=== PATIENT | female | born 1995 | race American Indian/Alaskan Native ===

== ENCOUNTER 2016-11-13 02:05 | Emergency (ER) | payer SELFPAY ==
[2016-11-13 02:25] VITALS: BP 121/78
[2016-11-13] MEDS ORDERED: TYLENOL ONE (02:27)
[2016-11-13] MEDS ORDERED: TYLENOL PO ONE (03:03)
--- NOTE | 2016-11-13 04:25 | Emergency Department Report ---
ED Lower Extremity HPI - General Chief Complaint: Extremity Injury, Lower Stated Complaint: RT ANKLE PAIN Time Seen by Provider: 11/13/16 03:51 Source: patient Mode of arrival: Ambulatory Limitations: No Limitations - History of Present Illness Complaint: ankle injury Onset/Timin -: Sudden, days(s) Injury: Ankle: Right Type of Injury: other (no fall injury or trauma) Place: home Severity: moderate Severity scale (0 -10): 3 Improves With: nothing Worsens With: movement, palpation Context: other (none) - Related Data Previous Rx's Medication Instructions Recorded Last Taken Type Ferrous Sulfate [Feosol 325 MG tab] 325 mg PO BID #90 tablet 02/07/13 Unknown Rx Cyclobenzaprine [Flexeril] 10 mg PO TID PRN #30 tablet 11/13/16 Unknown Rx Naproxen [Naprosyn TAB] 500 mg PO BID PRN #60 tablet 11/13/16 Unknown Rx Allergies Allergy/AdvReac Type Severity Reaction Status Date / Time No Known Allergies Allergy Verified 02/05/13 00:20 ED Review of Systems ROS: Stated complaint: RT ANKLE PAIN Other details as noted in HPI Constitutional: denies: chills, fever Eyes: denies: eye pain, eye discharge, vision change ENT: denies: ear pain, throat pain Respiratory: denies: cough, shortness of breath, wheezing Cardiovascular: denies: chest pain, palpitations Endocrine: no symptoms reported Gastrointestinal: denies: abdominal pain, nausea, diarrhea Genitourinary: denies: urgency, dysuria, discharge Musculoskeletal: denies: back pain, arthralgia Skin: denies: rash, lesions Neurological: denies: headache, weakness, paresthesias Psychiatric: denies: anxiety, depression Hematological/Lymphatic: denies: easy bleeding, easy bruising ED Past Medical Hx - Past Medical History Previous Medical History?: No Hx Hypertension: No Hx Congestive Heart Failure: No Hx Diabetes: No Hx Deep Vein Thrombosis: No Hx Renal Disease: No Hx Sickle Cell Disease: No Hx Seizures: No Hx Asthma: No Hx COPD: No Hx HIV: No - Surgical History Past Surgical History?: No - Social History Smoking Status: Never Smoker Substance Use Type: None - Medications Home Medications: Home Medications Medication Instructions Recorded Confirmed Last Taken Type Ferrous Sulfate [Feosol 325 MG tab] 325 mg PO BID #90 tablet 02/07/13 Unknown Rx Cyclobenzaprine [Flexeril] 10 mg PO TID PRN #30 tablet 11/13/16 Unknown Rx Naproxen [Naprosyn TAB] 500 mg PO BID PRN #60 tablet 11/13/16 Unknown Rx ED Physical Exam - General Limitations: No Limitations General appearance: alert, in no apparent distress - Head Head exam: Present: atraumatic, normocephalic - Eye Eye exam: Present: normal appearance - ENT ENT exam: Present: mucous membranes moist - Neck Neck exam: Present: normal inspection - Respiratory Respiratory exam: Present: normal lung sounds bilaterally. Absent: respiratory distress - Cardiovascular Cardiovascular Exam: Present: regular rate, normal rhythm. Absent: systolic murmur, diastolic murmur, rubs, gallop - GI/Abdominal GI/Abdominal exam: Present: soft, normal bowel sounds - Rectal Rectal exam: Present: deferred - Expanded Lower Extremity Exam Right Upper Leg exam: Present: normal inspection Knee exam: Present: normal inspection Lower Leg exam: Present: normal inspection Ankle exam: Present: full ROM, swelling, ecchymosis. Absent: tenderness, abrasion, laceration, deformity, crepidus, dislocation, erythema, anterior draw sign Neuro vascular tendon exam: Present: no vascular compromise. Absent: pulse deficit, abnormal cap refill, motor deficit, sensory deficit, tendon deficit, extremity cold to touch, pallor, abnormal 2-point discrimination, decreased fine /light touch, foot drop, peroneal nerve deficit, significant pain with passive ROM of distal joint Gait: Positive: observed and limited by pain - Back Exam Back exam: Present: normal inspection - Neurological Exam Neurological exam: Present: alert, oriented X3 - Psychiatric Psychiatric exam: Present: normal affect, normal mood - Skin Skin exam: Present: warm, dry, intact, normal color. Absent: rash ED Course Vital Signs 11/13/16 02:21 Temperature 98.6 F Pulse Rate 80 Respiratory 18 Rate Blood Pressure 121/78 [Right] O2 Sat by Pulse 99 Oximetry ED Lower Extremity MDM - Radiology Data Radiology results: image reviewed no fracture - Medical Decision Making pt is a 21 y/o aaf with nmh who presents for left ankle pain and swelling x 1 day pt advises pain initiated after lifting heavy boxes at work, pain is 4/10 aching to lateral ankle there is no fever no erythema no edema no ecchymosis , pain is reproducilbel to external rotation , pt is ambulatory with minimal discomfort, xray negative for fracture. plan: johnathan , rice, nsaids , muscle relaxant , ankle exercises pt verbalized agreement and understanding with discharge plan. Critical care attestation.: If time is entered above; I have spent that time in minutes in the direct care of this critically ill patient, excluding procedure time. ED Disposition Clinical Impression: Right ankle strain Disposition: DC-01 TO HOME OR SELFCARE Is pt being admited?: No Does the pt Need Aspirin: No Condition: Good Instructions: Ankle Exercises (GEN) Prescriptions: Cyclobenzaprine [Flexeril] 10 mg PO TID PRN #30 tablet PRN Reason: Muscle Spasm Naproxen [Naprosyn TAB] 500 mg PO BID PRN #60 tablet PRN Reason: Pain Referrals: PRIMARY CARE, [Primary Care Provider] - 3-5 Days Time of Disposition: 04:31
--- NOTE | 2016-11-13 07:19 | XRay Report ---
RIGHT ANKLE, 3 views: History: Right ankle pain. Findings: Mild soft tissue swelling is identified. No acute osseous abnormality or joint pathology is identified. The fifth metatarsal base is intact. Impression: Soft tissue swelling. No acute osseous injury.
== END 2016-11-13 04:56 | disposition home or self-care (01) ==
LOC: ED 02:05
DX: S96.911A Strain of unspecified muscle and tendon at ankle and foot level, right foot, initial encounter (principal); X58.XXXA Exposure to other specified factors, initial encounter; Y93.89 Activity, other specified; Y92.89 Other specified places as the place of occurrence of the external cause; Y99.8 Other external cause status
CPT/HCPCS: 99283

== ENCOUNTER 2017-11-27 00:56 | Emergency (ER) | payer SELFPAY ==
[2017-11-27 02:20] LABS: Basophils % (Auto) 0.4 % (0.0-1.8); Eosinophils # (Auto) 0.1 K/mm3 (0.0-0.4); Eosinophils % (Auto) 1.1 % (0.0-4.3); Hematocrit 30.4 % (30.3-42.9); Lymphocytes # (Auto) 1.7 K/mm3 (1.2-5.4); Lymphocytes % (Auto) 21.2 % (13.4-35.0); Mean Corpuscular HGB Conc 33 % (30-34); Mean Corpuscular Hemoglobin 27 pg (28-32); Mean Corpuscular Volume 81 fl (79-97); Monocytes # (Auto) 0.4 K/mm3 (0.0-0.8); Monocytes % (Auto) 5.1 % (0.0-7.3); Platelet Count 250 K/mm3 (140-440); Red Blood Count 3.77 M/mm3 (3.65-5.03); Red Cell Distribution Width 12.9 % (13.2-15.2)
[2017-11-27] MEDS ORDERED: TORADOL IM ONE (04:06)
--- NOTE | 2017-11-27 04:07 | Emergency Department Report ---
ED Female HPI - General Chief complaint: Vaginal Bleeding Stated complaint: VAG BLEED Time Seen by Provider: 11/27/17 03:31 Source: patient Mode of arrival: Stretcher Limitations: No Limitations - History of Present Illness Initial comments: Ms. Segovia is a healthy 22 yo female who presents with vaginal bleeding after being [place] [facility] [place] She has severe cramping and heavy bleeding. She is changing pad every hour. She was approximately 6 weeks . MD Complaint: vaginal bleeding -: Gradual, days(s) (1) Severity: moderate Quality: cramping Consistency: constant Worsens with: none - Related Data Previous Rx's Medication Instructions Recorded Last Taken Type Ferrous Sulfate [Feosol 325 MG tab] 325 mg PO BID #90 tablet 02/07/13 Unknown Rx Cyclobenzaprine [Flexeril] 10 mg PO TID PRN #30 tablet 11/13/16 Unknown Rx Naproxen [Naprosyn TAB] 500 mg PO BID PRN #60 tablet 11/13/16 Unknown Rx HYDROcodone/ACETAMINOPHEN [[place] 1 each PO Q6H PRN #10 tablet 11/27/17 Unknown Rx 5-325 Tablet] Ibuprofen 800 mg PO Q6H PRN #10 tablet 11/27/17 Unknown Rx Allergies Allergy/AdvReac Type Severity Reaction Status Date / Time No Known Allergies Allergy Verified 11/27/17 01:20 ED Review of Systems ROS: Stated complaint: VAG BLEED Other details as noted in HPI Comment: All other systems reviewed and negative Constitutional: denies: fever, malaise Respiratory: denies: cough Cardiovascular: denies: chest pain ED Past Medical Hx - Past Medical History Hx Hypertension: No Hx Congestive Heart Failure: No Hx Diabetes: No Hx Deep Vein Thrombosis: No Hx Renal Disease: No Hx Sickle Cell Disease: No Hx Seizures: No Hx Asthma: No Hx COPD: No Hx HIV: No Additional medical history: miscarriage - Surgical History Past Surgical History?: No - Social History Smoking Status: Never Smoker Substance Use Type: None - Medications Home Medications: Home Medications Medication Instructions Recorded Confirmed Last Taken Type Ferrous Sulfate [Feosol 325 MG tab] 325 mg PO BID #90 tablet 02/07/13 Unknown Rx Cyclobenzaprine [Flexeril] 10 mg PO TID PRN #30 tablet 11/13/16 Unknown Rx Naproxen [Naprosyn TAB] 500 mg PO BID PRN #60 tablet 11/13/16 Unknown Rx HYDROcodone/ACETAMINOPHEN [[place] 1 each PO Q6H PRN #10 tablet 11/27/17 Unknown Rx 5-325 Tablet] Ibuprofen 800 mg PO Q6H PRN #10 tablet 11/27/17 Unknown Rx ED Physical Exam - General Limitations: No Limitations General appearance: alert, in no apparent distress - Head Head exam: Present: atraumatic, normocephalic - Eye Eye exam: Present: normal appearance - ENT ENT exam: Present: mucous membranes moist - Neck Neck exam: Present: normal inspection - Respiratory Respiratory exam: Present: normal lung sounds bilaterally. Absent: respiratory distress, wheezes, rales, rhonchi - Cardiovascular Cardiovascular Exam: Present: regular rate, normal rhythm. Absent: systolic murmur, diastolic murmur, rubs, gallop - GI/Abdominal GI/Abdominal exam: Present: soft, normal bowel sounds. Absent: distended, guarding - Extremities Exam Extremities exam: Present: normal inspection - Back Exam Back exam: Present: normal inspection - Neurological Exam Neurological exam: Present: alert, oriented X3 - Psychiatric Psychiatric exam: Present: normal affect, normal mood - Skin Skin exam: Present: warm, dry, intact, normal color. Absent: rash ED Course Vital Signs 11/27/17 11/27/17 11/27/17 01:11 01:59 02:00 Temperature 98.8 F Pulse Rate 95 H 88 Respiratory 20 16 16 Rate Blood Pressure 101/64 Blood Pressure 108/64 [Left] O2 Sat by Pulse 100 98 98 Oximetry ED Medical Decision Making - Lab Data Result diagrams: 11/27/17 01:42 - Radiology Data Radiology results: report reviewed gestation sac in cervical canal - Medical Decision Making Ms. Segovia presents with incomplete miscarriage. O negative. WIll receive rhogam prior to discharge. I expect miscarriage to be complete within the next 2 days. rx: norco and ibuprofen Critical care attestation.: If time is entered above; I have spent that time in minutes in the direct care of this critically ill patient, excluding procedure time. ED Disposition Clinical Impression: Incomplete miscarriage Disposition: DC-01 TO HOME OR SELFCARE Is pt being admited?: No Does the pt Need Aspirin: No Condition: Stable Instructions: Spontaneous Miscarriage (ED) Prescriptions: HYDROcodone/ACETAMINOPHEN [[place] 5-325 Tablet] 1 each PO Q6H PRN #10 tablet PRN Reason: Pain , Severe (7-10) Ibuprofen 800 mg PO Q6H PRN #10 tablet PRN Reason: Pain , Severe (7-10) Referrals: KURT WILOCX MD [Staff Physician] - 3-5 Days Time of Disposition: 05:44
--- NOTE | 2017-11-27 05:25 | Ultrasound Report ---
FINAL REPORT PROCEDURE: US OB < = 14 WEEKS FETUS TECHNIQUE: Real-time transabdominal sonography of the uterus, placenta, amniotic fluid, adnexa, and fetus was performed with image documentation. Measurements were obtained to determine age/size. M-mode Doppler was used to document heartbeat. CPT 61048 HISTORY: miscarriage COMPARISON: No prior studies are available for comparison. FINDINGS: There is an irregular shaped gestational sac like structure in the endocervical canal measuring 14 millimeters in diameter. There is no pole, yolk sac or cardiac activity. The endometrium is thickened. Uterus is unremarkable. Ovaries are not seen. There is no free pelvic fluid. IMPRESSION: Nonviable with spontaneous in progress.
[2017-11-27 07:52] VITALS: BP 106/62
== END 2017-11-27 07:54 | disposition home or self-care (01) ==
LOC: ED 00:56
DX: O03.4 Incomplete spontaneous abortion without complication (principal); Z3A.01 Less than 8 weeks gestation of pregnancy
CPT/HCPCS: 36415; 76801; 84702; 85025; 85461; 86850; 86900; 86901; 96372; 99284; J1885; J2790; 36430

== ENCOUNTER 2018-12-20 20:50 | Emergency (ER) | payer MEDICAID ==
--- NOTE | 2018-12-20 21:10 | Event Note ---
ED Screening Note Date of service: 12/20/18 Time: 21:06 ED Screening Note: This is a 23 y.o. F. that presents to the ER with vaginal bleeding and abdominal pain. Patient states she took a test last week and positive. She was seen at [facility] with confirmed test and told to have Rhogram IM because she is RH negative. This initial assessment/diagnostic orders/clinical plan/treatment(s) is/are subject to change based on patients health status, clinical progression and re- assessment by fellow clinical providers in the ED. Further treatment and workup at subsequent clinical providers discretion. Patient/guardian urged not to elope from the ED as their condition may be serious if not clinically assessed and managed. Initial orders include: Labs and OB US
[2018-12-20 21:40] LABS: Basophils % (Auto) 0.7 % (0.0-1.8); Eosinophils # (Auto) 0.1 K/mm3 (0.0-0.4); Eosinophils % (Auto) 1.4 % (0.0-4.3); Hematocrit 34.8 % (30.3-42.9); Hemoglobin 11.6 gm/dl (10.1-14.3); Lymphocytes # (Auto) 2.4 K/mm3 (1.2-5.4); Mean Corpuscular HGB Conc 33 % (30-34); Mean Corpuscular Volume 81 fl (79-97); Monocytes # (Auto) 0.5 K/mm3 (0.0-0.8); Monocytes % (Auto) 7.7 % (0.0-7.3); Platelet Count 288 K/mm3 (140-440); Red Blood Count 4.32 M/mm3 (3.65-5.03); Red Cell Distribution Width 14.1 % (13.2-15.2)
[2018-12-20 21:42] LABS: Bilirubin,Urine NEG (Negative); Blood,Urine MOD (Negative); Color,Urine Yellow (Yellow); Mucus,Urine FEW /HPF; Protein,Urine <15 mg/dL mg/dL (Negative); Urobilinogen,Urine < 2.0 mg/dL (<2.0)
--- NOTE | 2018-12-20 23:10 | Ultrasound Report ---
ULTRASOUND OBSTETRIC INDICATION: Vaginal bleeding. Clinical gestational age of 9 weeks, 5 days. TECHNIQUE: Transabdominal and Transvaginal. COMPARISON: OB ultrasound from 11/27/2017. FINDINGS: GESTATIONAL SAC: None seen. YOLK SAC: None seen. EMBRYO/FETUS: None seen. UTERUS: No significant abnormality. ADNEXA: A 4 mm hyperechoic structure of uncertain significance is seen in the right ovary. There is e xpected color flow in the right ovary. The left ovary is normal in size and appearance with expected color flow. FREE FLUID: None. ADDITIONAL FINDINGS: None. IMPRESSION: No sonographic evidence of an intrauterine or ectopic . Signer Name: Franco Trent MD Signed: 12/20/2018 11:06 PM Workstation Name: [id number]
--- NOTE | 2018-12-20 23:14 | Emergency Department Report ---
ED Recheck HPI - General Chief Complaint: Medical Clearance Stated Complaint: RHOGAM SHOT Time Seen by Provider: 12/20/18 22:58 Source: patient Mode of arrival: Ambulatory Limitations: No Limitations - History of Present Illness Initial Comments: pt sent from MD office for rhogam shot. pt in process of having spontaneous Ab - Related Data Previous Rx's Medication Instructions Recorded Last Taken Type Ferrous Sulfate [Feosol 325 MG tab] 325 mg PO BID #90 tablet 02/07/13 Unknown Rx Cyclobenzaprine [Flexeril] 10 mg PO TID PRN #30 tablet 11/13/16 Unknown Rx Naproxen [Naprosyn TAB] 500 mg PO BID PRN #60 tablet 11/13/16 Unknown Rx HYDROcodone/ACETAMINOPHEN [[place] 1 each PO Q6H PRN #10 tablet 11/27/17 Unknown Rx 5-325 Tablet] Ibuprofen [Ibuprofen 800] 800 mg PO Q6H PRN #10 tablet 11/27/17 Unknown Rx Allergies Allergy/AdvReac Type Severity Reaction Status Date / Time No Known Allergies Allergy Verified 11/27/17 01:20 ED Review of Systems ROS: Stated complaint: RHOGAM SHOT Other details as noted in HPI Comment: All other systems reviewed and negative ED Past Medical Hx - Past Medical History Previous Medical History?: No Hx Hypertension: No Hx Congestive Heart Failure: No Hx Diabetes: No Hx Deep Vein Thrombosis: No Hx Renal Disease: No Hx Sickle Cell Disease: No Hx Seizures: No Hx Asthma: No Hx COPD: No Hx HIV: No Additional medical history: miscarriage - Surgical History Past Surgical History?: No - Social History Smoking Status: Never Smoker Substance Use Type: None - Medications Home Medications: Home Medications Medication Instructions Recorded Confirmed Last Taken Type Ferrous Sulfate [Feosol 325 MG tab] 325 mg PO BID #90 tablet 02/07/13 Unknown Rx Cyclobenzaprine [Flexeril] 10 mg PO TID PRN #30 tablet 11/13/16 Unknown Rx Naproxen [Naprosyn TAB] 500 mg PO BID PRN #60 tablet 11/13/16 Unknown Rx HYDROcodone/ACETAMINOPHEN [[place] 1 each PO Q6H PRN #10 tablet 11/27/17 Unknown Rx 5-325 Tablet] Ibuprofen [Ibuprofen 800] 800 mg PO Q6H PRN #10 tablet 11/27/17 Unknown Rx ED Physical Exam - General Limitations: No Limitations General appearance: alert - Head Head exam: Present: normocephalic - Eye Eye exam: Present: normal appearance - ENT ENT exam: Present: mucous membranes moist - Neck Neck exam: Present: normal inspection - Cardiovascular Cardiovascular Exam: Present: regular rate - GI/Abdominal GI/Abdominal exam: Present: soft - Rectal Rectal exam: Present: deferred - External exam: Present: normal external exam - Extremities Exam Extremities exam: Present: normal inspection ED Course Vital Signs 12/20/18 20:58 Temperature 98.3 F Pulse Rate 84 Respiratory 18 Rate Blood Pressure 128/65 [Right] O2 Sat by Pulse 100 Oximetry ED Recheck MDM - Core Measures Measure Exclusions: not indicated - Medical Decision Making US NOTED RH NEG- WILL NEED RHOGAM LAB NOTIFIED 5425 Lab Results 12/20/18 12/20/18 12/20/18 Range/Units 21:30 21:32 21:32 WBC 6.8 (4.5-11.0) K/mm3 RBC 4.32 (3.65-5.03) M/mm3 Hgb 11.6 (10.1-14.3) gm/dl Hct 34.8 (30.3-42.9) % MCV 81 (79-97) fl MCH 27 L (28-32) pg MCHC 33 (30-34) % RDW 14.1 (13.2-15.2) % Plt Count 288 (140-440) K/mm3 Lymph % (Auto) 35.0 (13.4-35.0) % [place] % (Auto) 7.7 H (0.0-7.3) % Eos % (Auto) 1.4 (0.0-4.3) % Baso % (Auto) 0.7 (0.0-1.8) % Lymph # 2.4 (1.2-5.4) K/mm3 [place] # 0.5 (0.0-0.8) K/mm3 Eos # 0.1 (0.0-0.4) K/mm3 Baso # 0.0 (0.0-0.1) K/mm3 Seg Neutrophils % 55.2 (40.0-70.0) % Seg Neutrophils # 3.8 (1.8-7.7) K/mm3 HCG, Quant 25.26 H (0-4) mIU/mL Urine Color Yellow (Yellow) Urine Turbidity Clear (Clear) Urine pH 5.0 (5.0-7.0) Ur Specific [place] 1.023 (1.003-1.030) Urine Protein <15 mg/dl (Negative) mg/dL Urine Glucose (UA) Neg (Negative) mg/dL Urine Ketones Neg (Negative) mg/dL Urine Blood Mod (Negative) Urine Nitrite Neg (Negative) Urine Bilirubin Neg (Negative) Urine Urobilinogen < 2.0 (<2.0) mg/dL Ur Leukocyte Esterase Neg (Negative) Urine WBC (Auto) 2.0 (0.0-6.0) /HPF Urine RBC (Auto) 19.0 (0.0-6.0) /HPF U Epithel Cells (Auto) 1.0 (0-13.0) /HPF Urine Mucus Few /HPF Blood Type 12/20/18 Range/Units 21:32 WBC (4.5-11.0) K/mm3 RBC (3.65-5.03) M/mm3 Hgb (10.1-14.3) gm/dl Hct (30.3-42.9) % MCV (79-97) fl MCH (28-32) pg MCHC (30-34) % RDW (13.2-15.2) % Plt Count (140-440) K/mm3 Lymph % (Auto) (13.4-35.0) % [place] % (Auto) (0.0-7.3) % Eos % (Auto) (0.0-4.3) % Baso % (Auto) (0.0-1.8) % Lymph # (1.2-5.4) K/mm3 [place] # (0.0-0.8) K/mm3 Eos # (0.0-0.4) K/mm3 Baso # (0.0-0.1) K/mm3 Seg Neutrophils % (40.0-70.0) % Seg Neutrophils # (1.8-7.7) K/mm3 HCG, Quant (0-4) mIU/mL Urine Color (Yellow) Urine Turbidity (Clear) Urine pH (5.0-7.0) Ur Specific [place] (1.003-1.030) Urine Protein (Negative) mg/dL Urine Glucose (UA) (Negative) mg/dL Urine Ketones (Negative) mg/dL Urine Blood (Negative) Urine Nitrite (Negative) Urine Bilirubin (Negative) Urine Urobilinogen (<2.0) mg/dL Ur Leukocyte Esterase (Negative) Urine WBC (Auto) (0.0-6.0) /HPF Urine RBC (Auto) (0.0-6.0) /HPF U Epithel Cells (Auto) (0-13.0) /HPF Urine Mucus /HPF Blood Type O NEGATIVE Vital Signs 12/20/18 20:58 Temperature 98.3 F Pulse Rate 84 Respiratory 18 Rate Blood Pressure 128/65 [Right] O2 Sat by Pulse 100 Oximetry RHOGAM ADMINISTERED. US noted DC HOME WITH OBGYN FOLLOW UP Critical care attestation.: If time is entered above; I have spent that time in minutes in the direct care of this critically ill patient, excluding procedure time. ED Disposition Clinical Impression: Spontaneous Disposition: DC-01 TO HOME OR SELFCARE Is pt being admited?: No Does the pt Need Aspirin: No Condition: Stable Additional Instructions: FOLLOW UP WITH OBGYN INSTRUCTED US HAS NO RETAINED PRODUCT RHOGAM ADMINISTERED Time of Disposition: 23:25
[2018-12-21 01:13] VITALS: BP 122/64
== END 2018-12-21 00:45 | disposition home or self-care (01) ==
LOC: ED 20:50
DX: O03.9 Complete or unspecified spontaneous abortion without complication (principal); Z79.899 Other long term (current) drug therapy; Z3A.00 Weeks of gestation of pregnancy not specified
CPT/HCPCS: 36415; 76801; 76817; 81001; 84702; 85025; 86850; 86900; 86901; 96372; 99284; J2790

== ENCOUNTER 2019-03-24 01:46 | Emergency (ER) | payer MEDICAID ==
[2019-03-24 01:58] VITALS: BP 139/93
[2019-03-24] MEDS ORDERED: ZOFRAN IV ONE (02:39)
[2019-03-24] MEDS ORDERED: NACL 0.9% 1000 ML 1,000 ML IV ONE (02:39)
--- NOTE | 2019-03-24 02:42 | Emergency Department Report ---
Vomiting/Diarrhea - HPI Chief Complaint: Nausea/Vomiting/Diarrhea Stated Complaint: PREG 9WKS/VOMITING Time Seen by Provider: 03/24/19 02:38 Duration: 4 Days Severity: severe Nausea/Vomiting Severity: Severe Diarrhea Severity: None Pain Severity: None Symptoms: Yes Able to Tolerate Fluids, No Watery Diarrhea, No Bloody diarrhea, No Fever, No Recent Unusual Foods, No Recent Untreated Water, No Recent use of Antibiotics, No Family w/ Similar Symptoms, No Contacts w/ Similar Symptoms, No Rash, No Hematuria, No Recent URI Symptoms Other History: This is a 24-year-old -[place] female who presents to the emergency room with nausea and vomiting for 4 days. Patient reports she was 9 weeks and followed by [facility]. Her last menstrual period was 01/13/2019, A4. Patient states she was started on Phenergan for hyperemesis gravidarum which is not controlling vomiting. States she contacted her FACILITY MANAGER [facility]ISTOLOG[facility] who instructed her to follow-up in the emergency room. Denies abdominal pain, vaginal bleeding, urinary frequency, urgency, dysuria, chest pain, dizziness, or weakness. ED Review of Systems ROS: Stated complaint: PREG 9WKS/VOMITING Other details as noted in HPI Constitutional: denies: chills, fever Respiratory: denies: cough, shortness of breath, wheezing Cardiovascular: denies: chest pain, palpitations Gastrointestinal: nausea, vomiting. denies: abdominal pain, diarrhea Genitourinary: denies: urgency, dysuria, discharge Skin: denies: rash, lesions Neurological: denies: headache, weakness, paresthesias Psychiatric: denies: anxiety, depression ED Past Medical Hx - Past Medical History Previous Medical History?: Yes Hx Hypertension: No Hx Congestive Heart Failure: No Hx Diabetes: No Hx Deep Vein Thrombosis: No Hx Renal Disease: No Hx Sickle Cell Disease: No Hx Seizures: No Hx Asthma: No Hx COPD: No Hx HIV: No Additional medical history: miscarriage - Surgical History Past Surgical History?: No - Social History Smoking Status: Never Smoker Substance Use Type: None - Medications Home Medications: Home Medications Medication Instructions Recorded Confirmed Last Taken Type Ferrous Sulfate [Feosol 325 MG tab] 325 mg PO BID #90 tablet 02/07/13 Unknown Rx Cyclobenzaprine [Flexeril] 10 mg PO TID PRN #30 tablet 11/13/16 Unknown Rx Naproxen [Naprosyn TAB] 500 mg PO BID PRN #60 tablet 11/13/16 Unknown Rx HYDROcodone/ACETAMINOPHEN [[place] 1 each PO Q6H PRN #10 tablet 11/27/17 Unknown Rx 5-325 Tablet] Ibuprofen [Ibuprofen 800] 800 mg PO Q6H PRN #10 tablet 11/27/17 Unknown Rx Doxylamine Succinate [Unisom] 25 mg PO TID PRN #20 tablet 03/24/19 Unknown Rx Ondansetron [Zofran Odt] 4 mg PO Q8HR PRN #20 tab.rapdis 03/24/19 Unknown Rx Pyridoxine HCl (Vitamin B6) 25 mg PO TID PRN #20 tablet 03/24/19 Unknown Rx [Pyridoxine HCl] cephALEXin [Keflex] 500 mg PO Q12HR #14 cap 03/24/19 Unknown Rx Vomiting Diarrhea Exam - Exam General: Vital signs noted. No distress. Alert and acting appropriately. HEENT: Yes Moist Mucous Membranes, No Pharyngeal Erythema, No Pharyngeal Exudates, No Rhinorrhea, No Conjuctival Injection, No Frontal Tenderness, No Maxillary Tenderness Neck: No Adenopathy, No Rigidity Lungs: Yes Clear Lung Sounds, Yes Good Air Exchange, No Wheezes, No Stridor, No Cough, No Nasal Flaring, No Retractions, No Use of Accessory Muscles Heart exam: Regular: Yes, Murmur: No, Tachycardia: No Abdomen: Tenderness: No, Peritoneal Signs: No, Distention: No, Hyperactive Bowel sounds: No Skin exam: Rash: No, Edema: No, Normal turgor: Yes Neurologic: Alert and oriented, no deficits. Musculoskeletal: Unremarkable. ED Course Vital Signs 03/24/19 01:50 Temperature 98.3 F Pulse Rate 94 H Respiratory 18 Rate Blood Pressure 139/93 O2 Sat by Pulse 99 Oximetry ED Medical Decision Making - Lab Data Result diagrams: 03/24/19 02:55 03/24/19 02:55 Lab Results 03/24/19 03/24/19 03/24/19 Range/Units 02:55 02:55 03:20 WBC 6.3 (4.5-11.0) K/mm3 RBC 4.63 (3.65-5.03) M/mm3 Hgb 12.1 (10.1-14.3) gm/dl Hct 36.7 (30.3-42.9) % MCV 79 (79-97) fl MCH 26 L (28-32) pg MCHC 33 (30-34) % RDW 13.3 (13.2-15.2) % Plt Count 264 (140-440) K/mm3 Lymph % (Auto) 20.3 (13.4-35.0) % [place] % (Auto) 8.4 H (0.0-7.3) % Eos % (Auto) 0.2 (0.0-4.3) % Baso % (Auto) 0.4 (0.0-1.8) % Lymph # 1.3 (1.2-5.4) K/mm3 [place] # 0.5 (0.0-0.8) K/mm3 Eos # 0.0 (0.0-0.4) K/mm3 Baso # 0.0 (0.0-0.1) K/mm3 Seg Neutrophils % 70.7 H (40.0-70.0) % Seg Neutrophils # 4.4 (1.8-7.7) K/mm3 Sodium 135 L (137-145) mmol/L Potassium 3.9 (3.6-5.0) mmol/L Chloride 101.0 (98-107) mmol/L Carbon Dioxide 21 L (22-30) mmol/L Anion Gap 17 mmol/L BUN 8 (7-17) mg/dL Creatinine 0.5 L (0.7-1.2) mg/dL Estimated GFR > 60 ml/min BUN/Creatinine Ratio 16 % Glucose 92 (65-100) mg/dL Calcium 8.9 (8.4-10.2) mg/dL Total Bilirubin 0.30 (0.1-1.2) mg/dL AST 21 (5-40) units/L ALT 32 (7-56) units/L Alkaline Phosphatase 70 (35-129) units/L Total Protein 7.5 (6.3-8.2) g/dL Albumin 4.0 (3.9-5) g/dL Albumin/Globulin Ratio 1.1 % Urine Color Melody (Yellow) Urine Turbidity Slightly-cloudy (Clear) Urine pH 6.0 (5.0-7.0) Ur Specific [place] 1.034 H (1.003-1.030) Urine Protein 100 mg/dl (Negative) mg/dL Urine Glucose (UA) Neg (Negative) mg/dL Urine Ketones 80 (Negative) mg/dL Urine Blood Sm (Negative) Urine Nitrite Neg (Negative) Urine Bilirubin Neg (Negative) Urine Urobilinogen 2.0 (<2.0) mg/dL Ur Leukocyte Esterase Mod (Negative) Urine WBC (Auto) 8.0 H (0.0-6.0) /HPF Urine RBC (Auto) 5.0 (0.0-6.0) /HPF U Epithel Cells (Auto) 12.0 (0-13.0) /HPF Urine Bacteria (Auto) 1+ (Negative) /HPF Urine Mucus 3+ /HPF - Medical Decision Making Patient was examined by me. Patient is nontoxic appearing and stable. Vitals are normal. Obtained labs. Given normal saline 1 L bolus and Zofran 8 mg IV. Urinalysis findings possibly dehydration but will cover urinary tract infection as well with cephalexin. On reevaluation patient reports feeling much better and able to tolerate liquids. Patient is followed by [facility] with a known diagnosis of hyperemesis gravidarum. Patient informed of results. Instructed to take Tylenol or ibuprofen for pain. Follow up with PCP or return to the ER with worsening symptoms. Patient discharged home in stable condition. Critical care attestation.: If time is entered above; I have spent that time in minutes in the direct care of this critically ill patient, excluding procedure time. ED Disposition Clinical Impression: Hyperemesis gravidarum, Nausea and vomiting during Acute cystitis during Qualifiers: Trimester: first trimester Qualified Code(s): O23.11 - Infections of bladder in , first trimester Disposition: DC- TO HOME OR SELFCARE Is pt being admited?: No Condition: Stable Instructions: Hyperemesis Gravidarum (ED) Additional Instructions: Follow-up with your FACILITY MANAGER [facility]OLOG[facility] at [facility] for continued therapy. If you are unable to hold anything down in 24 hours follow back up in the emergency room or with your FACILITY MANAGER HISTOLOGY. Prescriptions: cephALEXin [Keflex] 500 mg PO Q12HR #14 cap Pyridoxine HCl (Vitamin B6) [Pyridoxine HCl] 25 mg PO TID PRN #20 tablet PRN Reason: Nausea And Vomiting Doxylamine Succinate [Unisom] 25 mg PO TID PRN #20 tablet PRN Reason: Nausea And Vomiting Ondansetron [Zofran Odt] 4 mg PO Q8HR PRN #20 tab.rapdis PRN Reason: Nausea And Vomiting Referrals: [facility] [Provider Group] - 3-5 Days Forms: Work/School Release Form(ED), Accompanied Note Time of Disposition: 04:52
[2019-03-24 03:14] LABS: Basophils % (Auto) 0.4 % (0.0-1.8); Eosinophils % (Auto) 0.2 % (0.0-4.3); Hematocrit 36.7 % (30.3-42.9); Hemoglobin 12.1 gm/dl (10.1-14.3); Lymphocytes # (Auto) 1.3 K/mm3 (1.2-5.4); Lymphocytes % (Auto) 20.3 % (13.4-35.0); Mean Corpuscular HGB Conc 33 % (30-34); Mean Corpuscular Volume 79 fl (79-97); Monocytes # (Auto) 0.5 K/mm3 (0.0-0.8); Monocytes % (Auto) 8.4 % (0.0-7.3); Platelet Count 264 K/mm3 (140-440); Red Blood Count 4.63 M/mm3 (3.65-5.03); Red Cell Distribution Width 13.3 % (13.2-15.2)
[2019-03-24 03:26] LABS: Alanine Aminotransferase 32 units/L (7-56); BUN/Creatinine Ratio 16; Blood Urea Nitrogen 8 mg/dL (7-17); Calcium 8.9 mg/dL (8.4-10.2); Hemolysis Index 15
[2019-03-24 04:19] LABS: Bacteria,Urine 1+ /HPF (Negative); Bilirubin,Urine NEG (Negative); Blood,Urine SM (Negative); Color,Urine Amber (Yellow); Mucus,Urine 3+ /HPF
== END 2019-03-24 05:10 | disposition home or self-care (01) ==
LOC: ED 01:46
DX: O23.11 Infections of bladder in pregnancy, first trimester (principal); O21.9 Vomiting of pregnancy, unspecified; Z3A.09 9 weeks gestation of pregnancy; Z79.899 Other long term (current) drug therapy
CPT/HCPCS: 36415; 80053; 81001; 85025; 96361; 96374; 99283; J2405; J7030

== ENCOUNTER 2019-04-07 08:54 | Emergency (ER) | payer MEDICAID ==
--- NOTE | 2019-04-07 11:08 | Emergency Department Report ---
ED HPI - General Chief complaint: Abdominal Pain Stated complaint: 14 WKS /CRAMPS/PAIN Time Seen by Provider: 04/07/19 11:02 Source: patient Mode of arrival: Ambulatory Limitations: No Limitations - History of Present Illness Initial comments: Patient is a 24-year-old female that presents emergency room with complaints of vaginal bleeding and abdominal cramps. Patient states at this time she is not having abdominal cramps but is still having vaginal spotting. Patient states she is Rh-. Patient states her her cramps are intermittent. Patient states her cramps are better with rest and worse with movement. 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 Patient denies vaginal discharge. Patient denies dysuria. Patient denies fever and chills. Patient states she already seeing an TRIPE FINISHER. MD Complaint: vaginal bleeding, "contractions" -: Sudden Location: pelvis Radiation: none Severity: mild Severity scale (0 -10): 2 Quality: cramping Consistency: intermittent, now resolved Improves with: rest Worsens with: movement Associated symptoms: vaginal bleeding. denies: vaginal discharge, dysuria, headache, vision changes, malaise, dysparuenia, rash, seizure, shortness of breath, syncope, weakness Vaginal bleeding: light :: Yes Number of weeks : 12 OB History - Current : no complications OB History - Previous Pregnancies: miscarriage Pre-[place] care: followed by OB - Related Data : 4 Para: 1 Ab: 2 Previous Rx's Medication Instructions Recorded Last Taken Type Ferrous Sulfate [Feosol 325 MG tab] 325 mg PO BID #90 tablet 02/07/13 Unknown Rx Cyclobenzaprine [Flexeril] 10 mg PO TID PRN #30 tablet 11/13/16 Unknown Rx Naproxen [Naprosyn TAB] 500 mg PO BID PRN #60 tablet 11/13/16 Unknown Rx HYDROcodone/ACETAMINOPHEN [[place] 1 each PO Q6H PRN #10 tablet 11/27/17 Unknown Rx 5-325 Tablet] Ibuprofen [Ibuprofen 800] 800 mg PO Q6H PRN #10 tablet 11/27/17 Unknown Rx Doxylamine Succinate [Unisom] 25 mg PO TID PRN #20 tablet 03/24/19 Unknown Rx Ondansetron [Zofran Odt] 4 mg PO Q8HR PRN #20 tab.rapdis 03/24/19 Unknown Rx Pyridoxine HCl (Vitamin B6) 25 mg PO TID PRN #20 tablet 03/24/19 Unknown Rx [Pyridoxine HCl] cephALEXin [Keflex] 500 mg PO Q12HR #14 cap 03/24/19 Unknown Rx Allergies Allergy/AdvReac Type Severity Reaction Status Date / Time No Known Allergies Allergy Verified 11/27/17 01:20 ED Review of Systems ROS: Stated complaint: 14 WKS /CRAMPS/PAIN Other details as noted in HPI Constitutional: denies: chills, fever Eyes: denies: eye pain, eye discharge, vision change ENT: denies: ear pain, throat pain Respiratory: denies: cough, shortness of breath, wheezing Cardiovascular: denies: chest pain, palpitations Endocrine: no symptoms reported Gastrointestinal: denies: nausea, diarrhea Genitourinary: denies: urgency, dysuria, discharge Musculoskeletal: denies: back pain, joint swelling, arthralgia Skin: denies: rash, lesions Neurological: denies: headache, weakness, paresthesias Psychiatric: denies: anxiety, depression Hematological/Lymphatic: denies: easy bleeding, easy bruising ED Past Medical Hx - Past Medical History Previous Medical History?: Yes Hx Hypertension: No Hx Congestive Heart Failure: No Hx Diabetes: No Hx Deep Vein Thrombosis: No Hx Renal Disease: No Hx Sickle Cell Disease: No Hx Seizures: No Hx Asthma: No Hx COPD: No Hx HIV: No Additional medical history: miscarriage - Surgical History Past Surgical History?: No - Family History Family history: no significant - Social History Smoking Status: Never Smoker Substance Use Type: None - Medications Home Medications: Home Medications Medication Instructions Recorded Confirmed Last Taken Type Ferrous Sulfate [Feosol 325 MG tab] 325 mg PO BID #90 tablet 02/07/13 Unknown Rx Cyclobenzaprine [Flexeril] 10 mg PO TID PRN #30 tablet 11/13/16 Unknown Rx Naproxen [Naprosyn TAB] 500 mg PO BID PRN #60 tablet 11/13/16 Unknown Rx HYDROcodone/ACETAMINOPHEN [[place] 1 each PO Q6H PRN #10 tablet 11/27/17 Unknown Rx 5-325 Tablet] Ibuprofen [Ibuprofen 800] 800 mg PO Q6H PRN #10 tablet 11/27/17 Unknown Rx Doxylamine Succinate [Unisom] 25 mg PO TID PRN #20 tablet 03/24/19 Unknown Rx Ondansetron [Zofran Odt] 4 mg PO Q8HR PRN #20 tab.rapdis 03/24/19 Unknown Rx Pyridoxine HCl (Vitamin B6) 25 mg PO TID PRN #20 tablet 03/24/19 Unknown Rx [Pyridoxine HCl] cephALEXin [Keflex] 500 mg PO Q12HR #14 cap 03/24/19 Unknown Rx ED Physical Exam - General Limitations: No Limitations General appearance: alert, in no apparent distress - Head Head exam: Present: atraumatic, normocephalic - Eye Eye exam: Present: normal appearance - ENT ENT exam: Present: mucous membranes moist - Neck Neck exam: Present: normal inspection - Respiratory Respiratory exam: Present: normal lung sounds bilaterally. Absent: respiratory distress - Cardiovascular Cardiovascular Exam: Present: regular rate, normal rhythm. Absent: systolic murmur, diastolic murmur, rubs, gallop - GI/Abdominal GI/Abdominal exam: Present: soft, normal bowel sounds - Extremities Exam Extremities exam: Present: normal inspection - Back Exam Back exam: Present: normal inspection - Neurological Exam Neurological exam: Present: alert, oriented X3 - Psychiatric Psychiatric exam: Present: normal affect, normal mood - Skin Skin exam: Present: warm, dry, intact, normal color. Absent: rash ED Course Vital Signs 04/07/19 04/07/19 09:11 13:30 Temperature 98.3 F 98.8 F Pulse Rate 89 80 Respiratory 20 16 Rate Blood Pressure 121/70 117/62 Blood Pressure 117/62 [Left] O2 Sat by Pulse 99 100 Oximetry - Reevaluation(s) Reevaluation #1: I discussed all results with patient. I discussed plan of care with patient. Patient agrees with plan of care and discharge. Patient stable for discharge. Patient discharged home. Patient given discharge instructions. Patient voiced understanding of discharge instructions. 04/07/19 13:27 ED Medical Decision Making - Lab Data Result diagrams: 04/07/19 11:26 04/07/19 11:26 - Radiology Data Radiology results: report reviewed ULTRASOUND OBSTETRIC Indication: , vag bleed Findings: Transvaginal obstetrical ultrasound was performed. There is a single, living intrauterine . [place]-rump length = 6.8 cm = 13 weeks, 0 day(s). heart rate is 163 beats per minute. The ovaries are normal. There is no free fluid. Cervix appears closed. Impression: Single, living intrauterine with estimated sonographic age of 13 weeks, 0 day(s). - Medical Decision Making Patient is a 24-year-old female that presents emergency room with complaints of abdominal cramping and vaginal bleeding. Patient is 13 weeks . Patient given RhoGAM because she is Rh-. Patient's clinical findings consistent with bleeding during or a threatened miscarriage. Patient's ultrasound is negative. Patient's labs unremarkable. Patient stable for discharge. Patient discharged home. - Differential Diagnosis threatened miscarriage. Vaginal bleeding. Vaginal spotting. Critical care attestation.: If time is entered above; I have spent that time in minutes in the direct care of this critically ill patient, excluding procedure time. ED Disposition Clinical Impression: Vaginal bleeding before 22 weeks gestation, Threatened miscarriage, Abdominal cramping affecting Qualifiers: Weeks of gestation: 13 weeks Qualified Code(s): Z3A.13 - 13 weeks gestation of Rh negative status during Qualifiers: Trimester: first trimester Qualified Code(s): O26.891 - Other specified related conditions, first trimester Disposition: DC-01 TO HOME OR SELFCARE Is pt being admited?: No Does the pt Need Aspirin: No Condition: Stable Instructions: Threatened Miscarriage (ED), Abdominal Pain (ED) Additional Instructions: Patient to follow-up with primary care in 2-3 days. Patient to follow-up with academic specialist in 2-3 days. Patient to return to ER if condition worsens. Patient to rest. Patient to increase water. Patient to continue vitamin patient to take Tylenol when necessary for pain. Referrals: PRIMARY CARE, [Primary Care Provider] - 2-3 Days Time of Disposition: 13:38
[2019-04-07 11:40] LABS: Basophils # (Auto) 0.1 K/mm3 (0.0-0.1); Basophils % (Auto) 0.8 % (0.0-1.8); Eosinophils % (Auto) 0.4 % (0.0-4.3); Hematocrit 34.5 % (30.3-42.9); Hemoglobin 11.6 gm/dl (10.1-14.3); Lymphocytes # (Auto) 1.3 K/mm3 (1.2-5.4); Lymphocytes % (Auto) 18.6 % (13.4-35.0); Mean Corpuscular HGB Conc 34 % (30-34); Mean Corpuscular Volume 80 fl (79-97); Monocytes # (Auto) 0.4 K/mm3 (0.0-0.8); Monocytes % (Auto) 5.5 % (0.0-7.3); Platelet Count 269 K/mm3 (140-440); Red Blood Count 4.32 M/mm3 (3.65-5.03); Red Cell Distribution Width 13.7 % (13.2-15.2)
[2019-04-07 12:00] LABS: Alanine Aminotransferase 22 units/L (7-56); Albumin 3.8 g/dL (3.9-5); BUN/Creatinine Ratio 16; Blood Urea Nitrogen 8 mg/dL (7-17); Calcium 9.1 mg/dL (8.4-10.2); Hemolysis Index 12
--- NOTE | 2019-04-07 13:18 | Ultrasound Report ---
ULTRASOUND OBSTETRIC Indication: , vag bleed Findings: Transvaginal obstetrical ultrasound was performed. There is a single, living intrauterine . [place]-rump length = 6.8 cm = 13 weeks, 0 day(s). heart rate is 163 beats per minute. The ovaries are normal. There is no free fluid. Cervix appears closed. Impression: Single, living intrauterine with estimated sonographic age of 13 weeks, 0 day(s). Signer Name: Carlos Boyer MD Signed: 04/07/2019 1:14 PM Workstation Name: [id number]
--- NOTE | 2019-04-07 13:18 | Ultrasound Report ---
ULTRASOUND OBSTETRIC Indication: , vag bleed Findings: Transvaginal obstetrical ultrasound was performed. There is a single, living intrauterine . [place]-rump length = 6.8 cm = 13 weeks, 0 day(s). heart rate is 163 beats per minute. The ovaries are normal. There is no free fluid. Cervix appears closed. Impression: Single, living intrauterine with estimated sonographic age of 13 weeks, 0 day(s). Signer Name: Carlos Boyer MD Signed: 04/07/2019 1:14 PM Workstation Name: [id number]
[2019-04-07 13:33] VITALS: BP 117/62
== END 2019-04-07 14:16 | disposition home or self-care (01) ==
LOC: ED 08:54
DX: O20.0 Threatened abortion (principal); Z79.899 Other long term (current) drug therapy; Z79.1 Long term (current) use of non-steroidal anti-inflammatories (NSAID); Z3A.13 13 weeks gestation of pregnancy
CPT/HCPCS: 36415; 76801; 76817; 80053; 84702; 85025; 85461; 86850; 86900; 86901; 96372; 99283; J2790

== ENCOUNTER 2019-06-14 11:27 | Outpatient (CLI) | payer MEDICAID ==
[2019-06-14 13:06] VITALS: BP 114/64
[2019-06-14] MEDS ORDERED: LACTATED RINGERS 1,000 ML IV ONE (13:30)
[2019-06-14 15:12] LABS: Bilirubin,Urine NEG (Negative); Blood,Urine NEG (Negative); Color,Urine Yellow (Yellow); Mucus,Urine 3+ /HPF; Protein,Urine <15 mg/dL mg/dL (Negative)
== END 2019-06-14 16:12 | disposition home or self-care (01) ==
LOC: ED 11:27 → TRG 11:27 → EDSTATUS 13:27 → TRG 16:12
PROVIDERS: ATTEND Obstetrics & Gynecology
DX: O26.892 Other specified pregnancy related conditions, second trimester (principal); R25.2 Cramp and spasm; Z3A.22 22 weeks gestation of pregnancy
CPT/HCPCS: 81001; 96360; J7120

== ENCOUNTER 2019-07-25 21:56 | Outpatient (CLI) | payer MEDICAID ==
[2019-07-26 00:47] VITALS: BP 108/63
== END 2019-07-26 03:03 | disposition home or self-care (01) ==
LOC: TRG 07-26 00:07
PROVIDERS: ATTEND Obstetrics & Gynecology
DX: O26.893 Other specified pregnancy related conditions, third trimester (principal); O47.03 False labor before 37 completed weeks of gestation, third trimester; Z67.41 Type O blood, Rh negative; Z3A.28 28 weeks gestation of pregnancy
CPT/HCPCS: 85461; 86850; 86900; 86901; 96372; J2790

== ENCOUNTER 2019-09-26 04:24 | Inpatient (IN) | payer MEDICAID ==
[2019-09-26] MEDS ORDERED: ePHEDrine SULFATE 50 MG/1 ML INJ IV PRN ×2 (07:31→09:34)
[2019-09-26] MEDS ORDERED: NalbUPHINE 10 MG/1 ML INJ IV PRN (07:31)
[2019-09-26] MEDS ORDERED: TERBUTALINE 1 MG/1 ML INJ IVP PRN (07:31)
[2019-09-26] MEDS ORDERED: TERBUTALINE 1 MG/1 ML INJ SUB-Q PRN (07:31)
[2019-09-26] MEDS ORDERED: fentaNYL 100 MCG/2 ML INJ IV PRN (07:31)
[2019-09-26] MEDS ORDERED: BUTORPHANOL 2 MG/1 ML INJ IV PRN ×2 (07:31→08:00)
[2019-09-26 07:46] LABS: Hematocrit 32.4 % (30.3-42.9); Hemoglobin 10.6 gm/dl (10.1-14.3); Mean Corpuscular HGB Conc 33 % (30-34); Mean Corpuscular Volume 77 fl (79-97); Platelet Count 238 K/mm3 (140-440); Red Blood Count 4.23 M/mm3 (3.65-5.03); Red Cell Distribution Width 16.1 % (13.2-15.2)
[2019-09-26] MEDS ORDERED: LACTATED RINGERS 2,000 ML ONE (07:54)
[2019-09-26] MEDS ORDERED: OXYTOCIN 20 UNIT/1000ML DRIP 20 UNITS/1,000 ML BAG IV SCH (08:00)
[2019-09-26] MEDS ORDERED: OXYTOCIN DRIP 30 UNITS/500 ML BAG IV SCH (08:00)
[2019-09-26] MEDS ORDERED: LIDOCAINE (2%) 20 MG/1 ML VIAL 20 ML MDV INFILTRATI ONE (08:00)
[2019-09-26] MEDS ORDERED: LACTATED RINGERS 1,000 ML IV SCH (08:00)
[2019-09-26] MEDS ORDERED: ONDANSETRON 4 MG/2 ML INJ IV PRN (08:00)
[2019-09-26] MEDS ORDERED: DEXMEDETOMIDINE 200 MCG/2 ML VIAL IV ONE (08:55)
[2019-09-26] MEDS ORDERED: NALOXONE 2 MG/2 ML INJ IV PRN (09:34)
--- NOTE | 2019-09-26 09:43 | History and Physical Report ---
History of Present Illness Date of examination: 09/26/19 Date of admission: 09/26/19 04:25 Chief complaint: active labor at term History of present illness: 24 yo, at 37.5 wks, initiated care with [facility] at 8.6 wks gestation. Her has been complicated by anemia; enlarged thyroid; fibrocystic breast; pica (dirt, ice, pure corn starch); Rh negative; N/V (resolved) vaginal spotting; and Vit D deficiency. She reports to [facility] this morning with reports of regular, painful ctxs x 1 hr. Reports + FM. Denies any VB or LOF. Labs: O negative, antibody screen positive (on admission to hospital); Hbg- 10.6; PAP smear normal; rubella immune; VDRL non-reactive; urine culture negative; HBsAg negative; varicella immune GC/Chlamydia/Trich negative; Vit D - 15.1; MSAFP/Multiple markers negative; Hgb A1c 5.4; TSH/4F- 1.040/1.29; 1 hr gtt - 105; HIV negative; GBS negative. Past History Past Medical History: other (Rh negative) Past Surgical History: no surgical history [employer] History: chlamydia, trichomonas Social history: single, lives with family, smoking (former smoker), full code. denies: alcohol abuse, prescription drug abuse, IV drug use - Obstetrical History Expected Date of Delivery: 10/12/19 Actual Gestation: 37 Week(s) 5 Day(s) : 6 Para: 1 Hx # Term Pregnancies: 1 Number of Pregnancies: 0 Spontaneous Abortions: 4 Induced : 0 Number of Living Children: 1 #1 Infant Gender: Female year: 2[age][birth year] Birthweight: 3.657 kg Method of Delivery: Vaginal Gestational age at delivery: 40 Complications: none Medications and Allergies Allergies Allergy/AdvReac Type Severity Reaction Status Date / Time No Known Allergies Allergy Verified 11/27/17 01:20 Home Medications Medication Instructions Recorded Confirmed Last Taken Type Ferrous Sulfate [Feosol 325 MG tab] 325 mg PO BID #90 tablet 02/07/13 Unknown Rx Cyclobenzaprine [Flexeril] 10 mg PO TID PRN #30 tablet 11/13/16 Unknown Rx Naproxen [Naprosyn TAB] 500 mg PO BID PRN #60 tablet 11/13/16 Unknown Rx HYDROcodone/ACETAMINOPHEN [[place] 1 each PO Q6H PRN #10 tablet 11/27/17 Unknown Rx 5-325 Tablet] Ibuprofen [Ibuprofen 800] 800 mg PO Q6H PRN #10 tablet 11/27/17 Unknown Rx Doxylamine Succinate [Unisom] 25 mg PO TID PRN #20 tablet 03/24/19 Unknown Rx Ondansetron [Zofran Odt] 4 mg PO Q8HR PRN #20 tab.rapdis 03/24/19 Unknown Rx Pyridoxine HCl (Vitamin B6) 25 mg PO TID PRN #20 tablet 03/24/19 Unknown Rx [Pyridoxine HCl] cephALEXin [Keflex] 500 mg PO Q12HR #14 cap 03/24/19 Unknown Rx Active Meds: Active Medications Butorphanol Tartrate (Stadol) 1 mg IV Q2H PRN PRN Reason: Pain, Moderate(4-6) LABOR PAIN Butorphanol Tartrate (Stadol) 2 mg IV Q2H PRN PRN Reason: Pain , Severe (7-10) Ephedrine Sulfate (Ephedrine Sulfate) 10 mg IV Q2M PRN PRN Reason: Hypotension Fentanyl (Sublimaze) 100 mcg IV Q2H PRN PRN Reason: Pain,Severe (7-10) LABOR PAIN Last Admin: 09/26/19 07:58 Dose: 100 mcg Documented by: Oxytocin/Sodium Chloride (Pitocin/Ns 20 Unit/1000ml Drip) 20 units in 1,000 mls @ 125 mls/hr IV DIRECT DULCE Oxytocin/Sodium Chloride (Pitocin/Ns 30 Unit/500ml) 30 units in 500 mls @ 2 mls/hr IV TITR DULCE; Protocol Last Admin: 09/26/19 09:31 Dose: 2 mls/hr, 2 mls/hr Documented by: Lactated Ringer's (Lactated Ringers) 1,000 mls @ 125 mls/hr IV DIRECT DULCE Mineral Oil (Mineral Oil) 30 ml PO QHS PRN PRN Reason: Constipation Nalbuphine HCl (Nalbuphine) 10 mg IV Q2H PRN PRN Reason: Pain, Moderate (4-6) Ondansetron HCl (Zofran) 4 mg IV Q8H PRN PRN Reason: Nausea And Vomiting Last Admin: 09/26/19 07:59 Dose: 4 mg Documented by: Terbutaline Sulfate (Brethine) 0.25 mg SUB-Q ONCE PRN PRN Reason: Hyperstimulation/Hypertonicity Stop: 09/26/19 23:00 Terbutaline Sulfate (Brethine) 0.25 mg IVP ONCE PRN PRN Reason: Hyperstimulation/Hypertonicity Stop: 09/26/19 23:00 Review of Systems All systems: negative Genitourinary: contractions (painful) - Vital Signs Vital signs: Vital Signs Pulse BP 106 H 131/79 09/26/19 04:34 09/26/19 04:34 Temp Pulse Resp BP Pulse Ox 98.0 F 88 20 137/79 98 09/26/19 08:06 09/26/19 09:27 09/26/19 04:44 09/26/19 09:13 09/26/19 09:27 - Physical Exam Breasts: Positive: normal Cardiovascular: Regular rate Lungs: Positive: Normal air movement Abdomen: Positive: other (gravid) Genitourinary (Female): Positive: normal external genitalia, normal perenium Vagina: Positive: normal moisture Uterus: Positive: enlarged (S=D) Extremities: Positive: normal Deep Tendon Reflex Grade: Normal +2 - Obstetrical FHR: category 1 Uterine Contraction Monitor Mode: External Cervical Dilatation: 5 (per RN) Cervical Effacement Percentage: 60 station: -2 Uterine Contraction Frequency (min): 2-4 Uterine Contraction Pattern: Irregular Uterine Tone Measurement Phase: Resting Uterine Contraction Intensity: Moderate Results Result Diagrams: 09/26/19 06:30 Abnormal lab results 09/26/19 Range/Units 06:30 MCV 77 L (79-97) fl MCH 25 L (28-32) pg RDW 16.1 H (13.2-15.2) % All other labs normal. Assessment and Plan - Patient Problems (1) Active labor at term Current Visit: Yes Status: Acute Plan to address problem: Admit to L & D Epidural as requested Pitocin augmentation Anticipate (2) Anemia Current Visit: Yes Status: Acute Qualifiers: Anemia type: iron deficiency Plan to address problem: Asymptomatic Resume daily iron replacement PP (3) Rh negative status during Current Visit: Yes Status: Acute Plan to address problem: Rhogam workup PP
--- NOTE | 2019-09-26 09:47 | Anesthesia Consultation ---
Anesthesia Consult and Med Hx Date of service: 09/26/19 - Airway Anesthetic Teeth Evaluation: Good ROM Head & Neck: Adequate Mental/Hyoid Distance: Adequate Mallampati Class: Class II Intubation Access Assessment: Probably Good - Pulmonary Exam CTA: Yes - Cardiac Exam Cardiac Exam: RRR - Pre-Operative Health Status ASA Pre-Surgery Classification: ASA2 Proposed Anesthetic Plan: Epidural - Pulmonary Hx Smoking: No Hx Asthma: No Hx Respiratory Symptoms: No SOB: No COPD: No Home Oxygen Therapy: No Hx Pneumonia: No Hx Sleep Apnea: No - Cardiovascular System Hx Hypertension: No Hx Coronary Artery Disease: No Hx Heart Attack/AMI: No Hx Angina: No Hx Percutaneous Transluminal Coronary Angioplasty (PTCA): No Hx Cardia Arrhythmia: No Hx Pacemaker: No Hx Internal Defibrillator: No Hx Valvular Heart Disease: No Hx Heart Murmur: No Hx Peripheral Vascular Disease: No - Central Nervous System Hx Neuromuscular Disorder: No Hx Seizures: No CVA: No Hx Back Pain: No Hx Psychiatric Problems: No - Gastrointestinal Hx Ulcer: No Hx Gastroesophageal Reflux Disease: Yes - Endocrine Hx Renal Disease: No Hx End Stage Renal Disease: No Hx Cirrhosis: No Hx Liver Disease: No Hx Insulin Dependent Diabetes: No Hx Non-Insulin Dependent Diabetes: No Hx Thyroid Disease: No Hx Hypothyroidism: No Hx Hyperthyroidism: No - Hematic Hx Anemia: No Hx Sickle Cell Disease: No - Other Systems Hx Alcohol Use: No Hx Substance Use: No Hx Cancer: No Hx Obesity: Yes
[2019-09-26] MEDS ORDERED: fentaNYL-BUPIV 2 MCG/ML-0.125% 200 MCG/100 ML BAG EPIDURAL SCH (10:00)
--- NOTE | 2019-09-26 16:38 | Progress Note ---
Assessment and Plan - Patient Problems (1) Active labor at term Current Visit: Yes Status: Acute Plan to address problem: Continue Pitocin augmentation Anticipate (2) Anemia Current Visit: Yes Status: Acute Qualifiers: Anemia type: iron deficiency Plan to address problem: Asymptomatic Resume daily iron replacement PP (3) Rh negative status during Current Visit: Yes Status: Acute Plan to address problem: Rhogam workup PP Subjective - Subjective Date of service: 09/26/19 Principal diagnosis: labor Interval history: 24 yo, at 37.5 wks, initiated care with [facility] at 8.6 wks gestation. Her has been complicated by anemia; enlarged thyroid; fibrocystic breast; pica (dirt, ice, pure corn starch); Rh negative; N/V (resolved) vaginal spotting; and Vit D deficiency. She reports to [facility] this morning with reports of regular, painful ctxs x 1 hr. Reports + FM. Denies any VB or LOF. Labs: O negative, antibody screen positive (on admission to hospital); Hbg- 10.6; PAP smear normal; rubella immune; VDRL non-reactive; urine culture negative; HBsAg negative; varicella immune GC/Chlamydia/Trich negative; Vit D - 15.1; MSAFP/Multiple markers negative; Hgb A1c 5.4; TSH/4F- 1.040/1.29; 1 hr gtt - 105; HIV negative; GBS negative. Patient reports: movement normal, contractions (doesn't feel them), no new complaints, no vaginal bleeding Objective - Vital Signs Vital Signs: Vital Signs - 12hr 09/26/19 09/26/19 09/26/19 04:34 04:44 04:45 Temperature 97.9 F Pulse Rate 106 H 89 Respiratory 20 Rate Blood Pressure 131/79 141/89 O2 Sat by Pulse Oximetry 09/26/19 09/26/19 09/26/19 06:59 07:15 08:06 Temperature 98.0 F Pulse Rate 91 H 101 H Respiratory Rate Blood Pressure 127/74 129/72 O2 Sat by Pulse Oximetry 09/26/19 09/26/19 09/26/19 09:02 09:04 09:05 Temperature Pulse Rate 96 H 101 H 101 H Respiratory Rate Blood Pressure 138/76 135/77 O2 Sat by Pulse 99 Oximetry 09/26/19 09/26/1909/25/20 09:07 09:09 09:11 Temperature Pulse Rate 100 H 90 89 Respiratory Rate Blood Pressure 127/83 135/79 135/79 O2 Sat by Pulse 99 Oximetry 09/26/19 09/26/19 09/26/19 09:12 09:13 09:17 Temperature Pulse Rate 99 H 93 H 100 H Respiratory Rate Blood Pressure 137/79 O2 Sat by Pulse 98 99 Oximetry 09/26/19 09/26/19 09/26/19 09:22 09:27 09:32 Temperature Pulse Rate 89 88 92 H Respiratory Rate Blood Pressure 119/59 O2 Sat by Pulse 99 98 98 Oximetry 09/26/19 09/26/19 09/26/19 09:37 09:42 09:47 Temperature Pulse Rate 87 84 86 Respiratory Rate Blood Pressure O2 Sat by Pulse 97 98 98 Oximetry 09/26/19 09/26/19 09/26/19 09:49 09:52 09:57 Temperature Pulse Rate 80 97 H 90 Respiratory Rate Blood Pressure 122/67 O2 Sat by Pulse 98 98 Oximetry 09/26/19 09/26/19 09/26/19 10:02 10:03 10:07 Temperature Pulse Rate 88 87 87 Respiratory Rate Blood Pressure 124/58 O2 Sat by Pulse 98 97 Oximetry 09/26/19 09/26/19 09/26/19 10:12 10:17 10:18 Temperature Pulse Rate 83 89 86 Respiratory Rate Blood Pressure 125/69 O2 Sat by Pulse 98 99 Oximetry 09/26/19 09/26/19 09/26/19 10:22 10:27 10:32 Temperature Pulse Rate 91 H 84 89 Respiratory Rate Blood Pressure O2 Sat by Pulse 98 98 99 Oximetry 09/26/19 09/26/19 09/26/19 10:37 10:42 10:47 Temperature Pulse Rate 88 85 79 Respiratory Rate Blood Pressure O2 Sat by Pulse 98 98 98 Oximetry 09/26/19 09/26/19 09/26/19 10:52 10:57 10:59 Temperature Pulse Rate 89 84 87 Respiratory Rate Blood Pressure 149/77 O2 Sat by Pulse 97 98 Oximetry 09/26/19 09/26/19 09/26/19 11:02 11:07 11:12 Temperature Pulse Rate 91 H 86 88 Respiratory Rate Blood Pressure O2 Sat by Pulse 97 99 98 Oximetry 04/09/26/19 09/26/19 11:17 11:22 11:27 Temperature Pulse Rate 99 H 95 H 92 H Respiratory Rate Blood Pressure O2 Sat by Pulse 99 99 99 Oximetry 09/26/19 09/26/19 09/26/19 11:29 11:32 11:37 Temperature Pulse Rate 81 90 90 Respiratory Rate Blood Pressure 119/67 O2 Sat by Pulse 98 100 Oximetry 09/26/19 09/26/19 09/26/19 11:42 11:47 11:52 Temperature Pulse Rate 85 80 80 Respiratory Rate Blood Pressure O2 Sat by Pulse 99 98 99 Oximetry 09/26/19 09/26/19 09/26/19 11:57 11:58 12:02 Temperature Pulse Rate 79 78 85 Respiratory Rate Blood Pressure 114/56 O2 Sat by Pulse 98 98 Oximetry 09/26/19 09/26/19 09/26/19 12:07 12:12 12:17 Temperature Pulse Rate 81 84 81 Respiratory Rate Blood Pressure O2 Sat by Pulse 98 97 97 Oximetry 09/26/19 09/26/19 09/26/19 12:22 12:27 12:28 Temperature Pulse Rate 83 86 86 Respiratory Rate Blood Pressure 99/53 O2 Sat by Pulse 98 97 Oximetry 09/26/19 09/26/19 09/26/19 12:32 12:37 12:42 Temperature Pulse Rate 85 88 89 Respiratory Rate Blood Pressure O2 Sat by Pulse 97 98 97 Oximetry 09/26/19 09/26/19 09/26/19 12:47 12:52 12:57 Temperature Pulse Rate 83 83 98 H Respiratory Rate Blood Pressure 110/61 O2 Sat by Pulse 98 98 100 Oximetry 09/26/19 09/26/19 09/26/19 13:02 13:07 13:12 Temperature Pulse Rate 90 86 95 H Respiratory Rate Blood Pressure O2 Sat by Pulse 99 98 98 Oximetry 09/26/19 09/26/19 09/26/19 13:17 13:22 13:27 Temperature Pulse Rate 91 H 88 93 H Respiratory Rate Blood Pressure 106/62 O2 Sat by Pulse 97 98 100 Oximetry 09/26/19 09/26/19 09/26/19 13:32 13:37 13:42 Temperature Pulse Rate 102 H 98 H 100 H Respiratory Rate Blood Pressure O2 Sat by Pulse 100 100 100 Oximetry 09/26/19 09/26/19 09/26/19 13:47 13:52 13:57 Temperature Pulse Rate 103 H 95 H 100 H Respiratory Rate Blood Pressure O2 Sat by Pulse 99 99 100 Oximetry 09/26/19 09/26/19 09/26/19 14:02 14:07 14:12 Temperature Pulse Rate 89 92 H 97 H Respiratory Rate Blood Pressure O2 Sat by Pulse 100 100 100 Oximetry 09/26/19 09/26/19 09/26/19 14:17 14:22 14:27 Temperature Pulse Rate 92 H 100 H 87 Respiratory Rate Blood Pressure O2 Sat by Pulse 100 100 100 Oximetry 09/26/19 09/26/19 09/26/19 14:28 14:32 14:37 Temperature Pulse Rate 87 91 H 94 H Respiratory Rate Blood Pressure 129/60 O2 Sat by Pulse 100 100 Oximetry 09/26/19 09/26/19 09/26/19 14:42 14:47 14:52 Temperature Pulse Rate 111 H 97 H 93 H Respiratory Rate Blood Pressure O2 Sat by Pulse 100 99 99 Oximetry 09/26/19 09/26/19 09/26/19 14:57 14:59 15:02 Temperature Pulse Rate 78 81 114 H Respiratory Rate Blood Pressure 109/61 O2 Sat by Pulse 99 98 Oximetry 09/26/19 09/26/19 09/26/19 15:07 15:12 15:17 Temperature Pulse Rate 77 101 H 84 Respiratory Rate Blood Pressure O2 Sat by Pulse 99 98 99 Oximetry 09/26/19 09/26/19 09/26/19 15:22 15:27 15:28 Temperature Pulse Rate 94 H 81 91 H Respiratory Rate Blood Pressure 115/63 O2 Sat by Pulse 97 98 Oximetry 09/26/19 09/26/19 09/26/19 15:32 15:37 15:42 Temperature Pulse Rate 95 H 83 84 Respiratory Rate Blood Pressure O2 Sat by Pulse 100 98 98 Oximetry 09/26/19 09/26/19 09/26/19 15:47 15:52 15:57 Temperature Pulse Rate 79 107 H 79 Respiratory Rate Blood Pressure O2 Sat by Pulse 99 97 100 Oximetry 09/26/19 09/26/19 09/26/19 16:00 16:02 16:07 Temperature Pulse Rate 75 83 76 Respiratory Rate Blood Pressure 118/57 O2 Sat by Pulse 100 100 Oximetry 09/26/19 09/26/19 09/26/19 16:12 16:17 16:22 Temperature Pulse Rate 76 72 91 H Respiratory Rate Blood Pressure O2 Sat by Pulse 100 100 100 Oximetry 09/26/19 09/26/19 16:27 16:28 Temperature Pulse Rate 90 95 H Respiratory Rate Blood Pressure 125/64 O2 Sat by Pulse 99 Oximetry - Exam Breasts: deferred Cardiovascular: Regular rate Lungs: Normal air movement FHR: category 1 Uterine Contraction Monitor Mode: External Cervical Dilatation: 6 (vertex) Cervical Effacement Percentage: 70 station: -1 Uterine Contraction Frequency (min): 2-4 Uterine Contraction Pattern: Irregular Uterine Tone Measurement Phase: Resting Uterine Contraction Intensity: Moderate Extremities: normal Deep Tendon Reflex Grade: Normal +2 - Labs Labs: Abnormal Labs 09/26/19 06:30 MCV 77 L MCH 25 L RDW 16.1 H Laboratory Results - last 24 hr 09/26/19 09/26/19 06:30 06:30 WBC 8.9 RBC 4.23 Hgb 10.6 Hct 32.4 MCV 77 L MCH 25 L MCHC 33 RDW 16.1 H Plt Count 238 Blood Type O NEGATIVE Antibody Screen Positive SURJIT Antibody Screen Negative Antibody Identification Negative
[2019-09-26] MEDS ORDERED: MINERAL OIL 30 ML ORAL LIQD ONE (19:33)
[2019-09-26] MEDS ORDERED: LANOLIN/ZINC/DIMETHICONE (LANSINOH) 7 GM TP PRN (20:26)
[2019-09-26] MEDS ORDERED: diphenhydrAMINE 25 MG CAP PO PRN (20:26)
[2019-09-26] MEDS ORDERED: PROMETHAZINE 25 MG TAB PO PRN (20:26)
[2019-09-26] MEDS ORDERED: MAGNESIUM HYDROXIDE (MOM) ORAL LIQD UDC PO PRN (20:26)
--- NOTE | 2019-09-26 20:36 | Procedure Note ---
OB Delivery Note - Delivery Date of Delivery: 09/[birth year]/19 (1950) Surgeon: RACH PEPPER (CNM) Estimated blood loss: 200cc - Vaginal Delivery presentation: vertex Delivery position: OP (direct) Intrapartum events: none Delivery induction: none Delivery augmentation: rupture of membranes (AROM @ 1625, clear fluids), pitocin Delivery monitor: external FHT, external uterine Route of delivery: Delivery placenta: spontaneous (1954) Delivery cord: nuchal cord (x 1, reduced at perineum), 3 umbilical vessels Episiotomy: none Delivery laceration: 2nd degree (perineal) Delivery repair: vicryl (3.0 SH) Anesthesia: epidural Delivery comments: of viable, alert, quiet male , placed directly to maternal abdomen. Cried immediately after drying with warm blanket and manual stimulation. Cord double clamped, cut by FOB after cessation of pulsation. Placenta spontaneously delivered, giles, disposed per hospital policy. Uterus firm at U-2, hemostasis maintained. Second degree perineal laceration, repaired with 3.0 vicryl on SH. Mother and baby, safe, stable and bonding well, left in care of RN. - Infant A at 1 minute: 8 at 5 minutes: 9 Gender: Male (Wt: 3351 gms (7lbs 6.2 ozs) 18.5 inches)
--- NOTE | 2019-09-26 21:24 | Post Anesthesia Evaluation ---
- Post Anesthesia Evaluation Patient Participated: Yes Airway Patent: Yes Stable Respiratory Function: Yes Nausea/Vomiting: No Temp > 96.8F: Yes Pain Manageable: Yes Adequeate Hydration: Yes Anesthesia Complications: No Block Receding Appropriately: Yes Patient on Ventilator: No
[2019-09-26] MEDS ORDERED: MINERAL OIL 30 ML ORAL LIQD PO PRN (22:00)
[2019-09-26] MEDS: IBUPROFEN 600 MG TAB PO SCH (23:08)
[2019-09-26] MEDS: WITCH HAZEL/ GLYCERIN PAD TP PRN (23:57)
[2019-09-27] MEDS: oxyCODONE /ACETAMINOPHEN 5-325MG TAB PO PRN ×2 (00:53→15:04)
[2019-09-27] MEDS: IBUPROFEN 600 MG TAB PO SCH ×2 (05:35→15:07)
[2019-09-27 09:09] LABS: Hematocrit 28.2 % (30.3-42.9)
[2019-09-27] MEDS ORDERED: FERROUS SULFATE 325 MG TAB PO SCH (10:00)
[2019-09-27] MEDS ORDERED: PRENATAL VIT27-FE FUMARATE-FOLIC ACID VIT TAB PO SCH (10:00)
--- NOTE | 2019-09-27 12:07 | Progress Note ---
Assessment and Plan A: PP Day #1 Asymptomatic Anemia P: Follow Routine Orders Continue FeSO4 as ordered D/C Home in the AM RTO in 6 Weeks Subjective - Subjective Date of service: 09/27/19 Principal diagnosis: labor Patient reports: appetite normal, voiding normally, pain well controlled, flatus, ambulating normally : doing well, bottle feeding (and ) Objective - Vital Signs Latest vital signs: Vital Signs Temp Pulse Resp BP Pulse Ox 09/27/19 08:14 98.1 F 94 H 18 120/71 96 09/27/19 05:35 18 09/27/19 04:39 97.4 F L 83 18 97/53 97 09/27/19 00:53 18 09/26/19 23:08 20 09/26/19 22:51 99.3 F 98 H 20 133/73 99 09/26/19 20:28 115 H 121/55 09/26/19 19:58 109 H 111/53 09/26/19 19:52 133 H 99 09/26/19 19:47 131 H 96 09/26/19 19:42 128 H 99 09/26/19 19:37 126 H 99 09/26/19 19:32 135 H 100 09/26/19 19:27 122 H 100 09/26/19 19:22 118 H 100 09/26/19 19:17 100 H 99 09/26/19 19:12 105 H 99 09/26/19 19:07 114 H 99 09/26/19 19:02 112 H 100 09/26/19 19:01 117 H 72 L 09/26/19 18:59 103 H 112/59 09/26/19 18:57 116 H 99 09/26/19 18:52 119 H 100 09/26/19 18:47 116 H 92 09/26/19 18:42 104 H 100 09/26/19 18:40 98.0 F 112 H 91 09/26/19 18:37 114 H 98 09/26/19 18:32 110 H 100 09/26/19 18:31 120 H 94 09/26/19 18:28 112 H 93/53 09/26/19 18:27 109 H 100 09/26/19 18:22 117 H 100 09/26/19 18:17 106 H 99 09/26/19 18:12 114 H 99 09/26/19 18:07 122 H 99 09/26/19 18:02 115 H 97 09/26/19 17:57 98 H 100 09/26/19 17:52 84 99 09/26/19 17:47 93 H 99 09/26/19 17:42 93 H 99 09/26/19 17:37 87 99 09/26/19 17:32 79 98 09/26/19 17:29 91 H 125/65 09/26/19 17:27 73 100 09/26/19 17:22 87 100 09/26/19 17:17 109 H 88 09/26/19 17:12 85 99 09/26/19 17:07 74 99 09/26/19 17:02 86 99 09/26/19 16:59 76 112/59 09/26/19 16:57 85 98 09/26/19 16:52 95 H 99 09/26/19 16:47 79 99 09/26/19 16:42 79 100 09/26/19 16:37 98 H 100 09/26/19 16:32 95 H 100 09/26/19 16:28 95 H 125/64 09/26/19 16:27 90 99 09/26/19 16:22 91 H 100 09/26/19 16:17 72 100 09/26/19 16:12 76 100 09/26/19 16:07 76 100 09/26/19 16:02 83 100 09/26/19 16:00 98.0 F 75 118/57 09/26/19 15:57 79 100 09/26/19 15:52 107 H 97 09/26/19 15:47 79 99 09/26/19 15:42 84 98 09/26/19 15:37 83 98 09/26/19 15:32 95 H 100 09/26/19 15:28 91 H 115/63 09/26/19 15:27 81 98 09/26/19 15:22 94 H 97 09/26/19 15:17 84 99 09/26/19 15:12 101 H 98 09/26/19 15:07 77 99 09/26/19 15:02 114 H 98 09/26/19 14:59 81 109/61 09/26/19 14:57 78 99 09/26/19 14:52 93 H 99 09/26/19 14:47 97 H 99 09/26/19 14:42 111 H 100 09/26/19 14:37 94 H 100 09/26/19 14:32 91 H 100 09/26/19 14:28 87 129/60 09/26/19 14:27 87 100 09/26/19 14:22 100 H 100 09/26/19 14:17 92 H 100 09/26/19 14:12 97 H 100 09/26/19 14:07 92 H 100 09/26/19 14:02 89 100 09/26/19 13:57 100 H 100 09/26/19 13:52 95 H 99 09/26/19 13:47 103 H 99 09/26/19 13:42 100 H 100 09/26/19 13:37 98 H 100 09/26/19 13:32 102 H 100 09/26/19 13:27 93 H 106/62 100 09/26/19 13:22 88 98 09/26/19 13:17 91 H 97 09/26/19 13:12 95 H 98 09/26/19 13:07 86 98 09/26/19 13:02 90 99 09/26/19 12:57 98 H 110/61 100 09/26/19 12:52 83 98 09/26/19 12:47 83 98 09/26/19 12:42 89 97 09/26/19 12:37 88 98 09/26/19 12:32 85 97 09/26/19 12:28 86 99/53 09/26/19 12:27 86 97 09/26/19 12:22 83 98 09/26/19 12:17 81 97 09/26/19 12:12 84 97 09/26/19 12:07 81 98 Intake and Output 09/26/19 09/27/19 09/27/19 22:59 06:59 14:59 Intake Total 240 360 Output Total 700 700 Balance -460 -340 Intake: Oral 120 Intake, Free Water 240 240 Output: Urine 700 700 Void 700 700 Other: Total, Intake Amount 120 Total, Output Amount 700 700 Estimated Blood Loss 200 - Exam Breasts: Present: normal Cardiovascular: Present: Regular rate Lungs: Present: Clear to auscultation, Normal air movement Abdomen: Present: normal appearance, soft, normal bowel sounds Uterus: Present: normal, firm, fundal height below umbilicus Extremities: Present: normal - Labs Labs: Abnormal lab results 09/27/19 Range/Units 08:36 Hgb 9.0 L (10.1-14.3) gm/dl Hct 28.2 L (30.3-42.9) %
--- NOTE | 2019-09-27 12:08 | Discharge Summary ---
Providers - Providers Date of Admission: 09/26/19 04:25 Date of discharge: 09/28/19 Attending physician: KAYDEN ROSARIO MD Primary care physician: KAYDEN ROSARIO MD Hospitalization Reason for admission: active labor Delivery: Episiotomy: none Laceration: 2nd degree Other procedures: none complications: none Discharge diagnosis: IUP at term delivered [place] baby: male Condition at discharge: Good Disposition: DC-01 TO HOME OR SELFCARE Plan - Provider Discharge Summary Activity: routine, no sex for 6 weeks, no heavy lifting 4 weeks, no strenuous exercise Diet: routine Instructions: routine Additional instructions: [] Smoking cessation referral if applicable(refer to patient education folder for contact #) [] Refer to [facility] Booklet Call your doctor immediately for: * Fever > 100.5 * Heavy vaginal bleeding ( >1 pad per hour) * Severe persistent headache * Shortness of breath * Reddened, hot, painful area to leg or breast * Drainage or odor from incision. * Keep incision clean and dry at all times and follow doctor's instructions regarding bathing/showering - Follow up plan Follow up: KAYDEN ROSARIO MD [Primary Care Provider] - 6 Weeks
[2019-09-27] MEDS ORDERED: BENZOCAINE/MENTHOL 20/0.5% TOP SPRAY 56 GM TP PRN (21:51)
[2019-09-28] MEDS: IBUPROFEN 600 MG TAB PO SCH ×2 (01:57→10:38)
[2019-09-28 12:03] VITALS: BP 119/69
[2019-09-28] MEDS: WITCH HAZEL/ GLYCERIN PAD TP PRN (16:39)
== END 2019-09-28 12:40 | disposition home or self-care (01) | DRG 775 ==
LOC: TRG 04:24 → LD 04:25 → APU 04:26 → TRG 07:42 → OB 22:47
PROVIDERS: ADMIT Obstetrics & Gynecology; ATTEND Obstetrics & Gynecology
PROC: 10E0XZZ Delivery of Products of Conception, External Approach (ICD-10-PCS; principal; 2019-09-26)
PROC: 0KQM0ZZ Repair Perineum Muscle, Open Approach (ICD-10-PCS; 2019-09-26)
PROC: 10907ZC Drainage of Amniotic Fluid, Therapeutic from Products of Conception, Via Natural or Artificial Opening (ICD-10-PCS; 2019-09-26)
PROC: 3E0R3BZ Introduction of Anesthetic Agent into Spinal Canal, Percutaneous Approach (ICD-10-PCS; 2019-09-26)
PROC: 00HU33Z Insertion of Infusion Device into Spinal Canal, Percutaneous Approach (ICD-10-PCS; 2019-09-26)
DX: O69.81X0 Labor and delivery complicated by cord around neck, without compression, not applicable or unspecified (principal); Z3A.37 37 weeks gestation of pregnancy; Z37.0 Single live birth; O64.0XX0 Obstructed labor due to incomplete rotation of fetal head, not applicable or unspecified; O70.1 Second degree perineal laceration during delivery; O90.81 Anemia of the puerperium; D64.9 Anemia, unspecified
CPT/HCPCS: 36415; 85014; 85018; 85027; 85461; 86850; 86870; 86900; 86901; G0378; J2405; J2590; J2790; J3010; J3490; J7120